=== PATIENT | male | born 1950 | race African-American/Black ===

== ENCOUNTER 2017-06-27 10:55 | Emergency (ER) | payer SELFPAY ==
[~2017-06-27] VITALS: Ht 185.4 cm; Wt 113.4 kg
[2017-06-27 11:01] VITALS: BP 143/93
[2017-06-27 11:47] LABS: Basophils # (auto) 0.1 uL; Basophils % (auto) 1.2 % (0.0-2.0); Eosinophils # (auto) 0.1 uL; Eosinophils % (auto) 1.6 % (0.0-7.0); Hematocrit 40.6 % (41.0-53.0); Hemoglobin 13.4 g/dL (13.5-17.5); Lymphocytes # (auto) 2.1 uL; Lymphocytes % (auto) 33.7 % (10.0-50.0); Mean Corpuscular Hemoglobin 33.3 pg (28.0-32.0); Mean Corpuscular Hgb Conc. 32.9 g/dL (32.0-36.0); Mean Corpuscular Volume 101.1 fL (80.0-100.0); Monocytes # (auto) 0.3 uL; Monocytes % (auto) 5.1 % (0.0-12.0); Neutrophils # (auto) 3.6 uL; Neutrophils % (auto) 58.4 % (37.0-80.0); Nucleated Red Blood Cells % 0.1 %; Platelet Count (auto) 385 10^3/uL (140-450); Red Blood Cells 4.01 10^6/uL (4.5-5.90); Red Cell Distribution Width 15.1 % (11.8-14.3); White Blood Cell 6.2 10^3/uL (4.4-10.8)
[2017-06-27 12:16] LABS: Albumin 3.8 g/dL (3.4-5.0)
[2017-06-27 12:18] LABS: BUN/Creatinine Ratio 9.6
[2017-06-27 12:19] LABS: Bilirubin, Total 0.5 mg/dL (0.2-1.0); Total Protein 8.6 g/dL (6.4-8.2)
== END 2017-06-27 12:40 | disposition home or self-care (01) ==
LOC: ER 10:55
DX: Z00.00 Encounter for general adult medical examination without abnormal findings (principal); I10 Essential (primary) hypertension
CPT/HCPCS: 36415; 80053; 85025

== ENCOUNTER 2017-07-05 12:07 | Observation (INO) | payer MEDICARE ==
[~2017-07-05] VITALS: Ht 185.4 cm; Wt 112.5 kg
[2017-07-05] MEDS ORDERED: SODIUM CHLORIDE 0.9% 1,000 ML IVB ONE (14:13)
[2017-07-05] MEDS ORDERED: ONDANSETRON HCL 4 MG/2 ML VIAL IV ONE (14:15)
[2017-07-05 14:17] LABS: Basophils # (auto) 0 uL; Basophils % (auto) 0.2 % (0.0-2.0); Eosinophils # (auto) 0.1 uL; Eosinophils % (auto) 1.4 % (0.0-7.0); Hematocrit 40.4 % (41.0-53.0); Hemoglobin 13.8 g/dL (13.5-17.5); Lymphocytes # (auto) 1.5 uL; Lymphocytes % (auto) 28.8 % (10.0-50.0); Mean Corpuscular Hemoglobin 33.4 pg (28.0-32.0); Mean Corpuscular Hgb Conc. 34.1 g/dL (32.0-36.0); Mean Corpuscular Volume 98.1 fL (80.0-100.0); Monocytes # (auto) 0.7 uL; Monocytes % (auto) 14.3 % (0.0-12.0); Neutrophils # (auto) 2.8 uL; Neutrophils % (auto) 55.3 % (37.0-80.0); Nucleated Red Blood Cells % 0.1 %; Platelet Count (auto) 315 10^3/uL (140-450); Red Blood Cells 4.12 10^6/uL (4.5-5.90); Red Cell Distribution Width 14.8 % (11.8-14.3); White Blood Cell 5.1 10^3/uL (4.4-10.8)
[2017-07-05 14:33] LABS: BUN/Creatinine Ratio 13.3
[2017-07-05 14:36] LABS: Bilirubin, Total 0.6 mg/dL (0.2-1.0); Total Protein 7.7 g/dL (6.4-8.2)
[2017-07-05 14:46] LABS: Magnesium 2.5 mg/dL (1.6-2.6)
[2017-07-05 16:02] LABS: Urine Bacteria NONE SEEN /hpf (None Seen); Urine Blood Negative /uL (Negative); Urine Mucus FEW (None Seen); Urine Specific Gravity 1.023 (1.001-1.035); Urine WBC 1 /hpf (0 - 3)
[2017-07-05 17:58] VITALS: BP 138/84
== END 2017-07-05 19:49 | disposition home or self-care (01) | DRG 392 ==
LOC: ER 12:07 → OVERFLOW 14:14 → ER 19:49
PROVIDERS: ADMIT Family Medicine; ATTEND Family Medicine
DX: K52.9 Noninfective gastroenteritis and colitis, unspecified (principal); I10 Essential (primary) hypertension; K57.90 Diverticulosis of intestine, part unspecified, without perforation or abscess without bleeding; Z86.010 Personal history of colon polyps
CPT/HCPCS: 36415; 71045; 74176; 80053; 81001; 83690; 83735; 84484; 85025; 93005; 96361; 96374; 99285; G0378; J2405; J7030

== ENCOUNTER → 2019-10-21 | Outpatient (CLI) | payer MEDICARE, BC | END | disposition home or self-care (01) | LOC: XYW 08:53 | PROVIDERS: ATTEND Internal Medicine | DX: Z01.810 Encounter for preprocedural cardiovascular examination (principal); I08.2 Rheumatic disorders of both aortic and tricuspid valves | CPT/HCPCS: 93306 ==

== ENCOUNTER → 2019-11-02 | Outpatient (CLI) | payer MEDICARE, BC ==
[~2019-11-02] VITALS: Ht 185.4 cm; Wt 117.0 kg
[~2019-11-02] MED LIST: ADENOSINE 98 MG in GIVE UN-DILUTED 0 ML IV STA
[2019-11-02 08:53] VITALS: BP 142/88
== END | disposition home or self-care (01) ==
LOC: XY 07:56
PROVIDERS: ATTEND Internal Medicine
DX: E79.0 Hyperuricemia without signs of inflammatory arthritis and tophaceous disease (principal)
CPT/HCPCS: 78452; 93017; A9500; J0153

== ENCOUNTER 2020-01-06 10:31 | Emergency (ER) | payer MEDICARE, BC ==
[~2020-01-06] VITALS: Ht 185.4 cm; Wt 115.2 kg
[2020-01-06 13:49] VITALS: BP 115/75
== END 2020-01-06 14:17 | disposition home or self-care (01) ==
LOC: ER 10:31
DX: U07.1 COVID-19 (principal); J01.00 Acute maxillary sinusitis, unspecified; I10 Essential (primary) hypertension
CPT/HCPCS: 36415; 71045; 87426

== ENCOUNTER → 2020-07-07 | Outpatient (CLI) | payer MEDICARE, BC | END | disposition home or self-care (01) | LOC: LAB 12:36 | PROVIDERS: ATTEND Internal Medicine Gastroenterology | DX: K92.2 Gastrointestinal hemorrhage, unspecified (principal); Z86.010 Personal history of colon polyps | CPT/HCPCS: 82274 ==

== ENCOUNTER → 2020-08-24 | Outpatient (CLI) | payer MEDICARE, BC | END | disposition home or self-care (01) | LOC: XYW 08:01 | PROVIDERS: ATTEND Internal Medicine | DX: Z01.810 Encounter for preprocedural cardiovascular examination (principal); I08.3 Combined rheumatic disorders of mitral, aortic and tricuspid valves | CPT/HCPCS: 93306 ==

== ENCOUNTER → 2021-03-05 | Outpatient (CLI) | payer MEDICARE, BC | END | disposition home or self-care (01) | LOC: XYW 08:01 | PROVIDERS: ATTEND Internal Medicine | DX: I11.0 Hypertensive heart disease with heart failure (principal); I50.22 Chronic systolic (congestive) heart failure; I05.0 Rheumatic mitral stenosis; I35.0 Nonrheumatic aortic (valve) stenosis | CPT/HCPCS: 93306 ==

== ENCOUNTER 2021-08-21 15:58 | Inpatient (IN) | payer MEDICARE, BC ==
[~2021-08-21] VITALS: Ht 185.4 cm; Wt 121.4 kg
[2021-08-21] MEDS ORDERED: ASPirin 81 mg TAB PO ONE (16:45)
[2021-08-21 17:33] LABS: Urine Bacteria FEW /hpf (None Seen); Urine Blood Negative /uL (Negative); Urine Mucus FEW (None Seen); Urine WBC <1 /hpf (0 - 3)
[2021-08-21 17:37] LABS: Basophils # (auto) 0 10 ^3/uL (0-0.2); Basophils % (auto) 0.6 % (0.0-2.0); Eosinophils # (auto) 0 10 ^3/uL (0-0.8); Eosinophils % (auto) 0.9 % (0.0-7.0); Hematocrit 41.1 % (41.0-53.0); Hemoglobin 13.3 g/dL (13.5-17.5); Lymphocytes # (auto) 1.8 10 ^3/uL (0.4-5.4); Lymphocytes % (auto) 36.3 % (10.0-50.0); Mean Corpuscular Hemoglobin 31.8 pg (28.0-32.0); Mean Corpuscular Hgb Conc. 32.5 g/dL (32.0-36.0); Monocytes # (auto) 0.3 10 ^3/uL (0-1.3); Monocytes % (auto) 5.9 % (0.0-12.0); Neutrophils # (auto) 2.8 10 ^3/uL (1.6-8.6); Neutrophils % (auto) 56.3 % (37.0-80.0); Nucleated Red Blood Cells % 0.1 %; Red Cell Distribution Width 16.8 % (11.8-14.3); White Blood Cell 5.1 10^3/uL (4.4-10.8)
[2021-08-21 17:45] LABS: Calcium 8.7 mg/dL (8.5-10.1); INR 0.94 (0.9-1.15); Partial Thromboplastin Time 25.9 sec (24.6-33.4); Potassium 4.5 mmol/L (3.5-5.1)
[2021-08-21 17:48] LABS: Albumin 3.6 g/dL (3.4-5.0); BUN/Creatinine Ratio 12.4; Magnesium 2.4 mg/dL (1.6-2.6)
[2021-08-21 17:51] LABS: Bilirubin, Total 0.6 mg/dL (0.2-1.0); Total Protein 7.9 g/dL (6.4-8.2)
[2021-08-22] MEDS ORDERED: ONDANSETRON HCL 4 MG/2 ML VIAL IV PRN (05:45)
[2021-08-22] MEDS ORDERED: NITROGLYCERIN 0.4 MG SL TAB SL PRN (05:45)
[2021-08-22] MEDS ORDERED: ACETAMINOPHEN 325 MG TAB PO PRN (05:45)
[2021-08-22] MEDS ORDERED: MORPHINE SULFATE INJ 2 MG/ml SYRG IV PRN (05:45)
[2021-08-22] MEDS: PANTOPRAZOLE 40 MG TAB PO SCH (09:43)
[2021-08-22] MEDS: SACUBITRIL-VALSARTAN 24mg/26mg TAB PO SCH ×2 (09:43→23:05)
[2021-08-22] MEDS: CARVEDILOL 3.125 MG TAB PO SCH ×2 (09:44→23:07)
[2021-08-22] MEDS: ENOXAPARIN SOD 40 MG/0.4 ML SYRINGE SC SCH (09:45)
[2021-08-22] MEDS ORDERED: ASPirin 81 mg TAB PO SCH (10:00)
[2021-08-22] MEDS ORDERED: CAR3125T PO (11:32)
[2021-08-22] MEDS ORDERED: ALLO100T PO (11:32)
[2021-08-22] MEDS ORDERED: SACU1TAB PO (11:32)
[2021-08-22 13:56] LABS: BUN/Creatinine Ratio 17.2; Calcium 8.4 mg/dL (8.5-10.1); Potassium 4.2 mmol/L (3.5-5.1)
[2021-08-22 22:38] VITALS: BP 130/83
[2021-08-22 23:00] VITALS: BP 130/83
[2021-08-22] MEDS: ATORVASTATIN 20 MG TAB PO SCH (23:05)
[2021-08-23 05:12] LABS: Basophils # (auto) 0 10 ^3/uL (0-0.2); Basophils % (auto) 0.4 % (0.0-2.0); Eosinophils # (auto) 0.1 10 ^3/uL (0-0.8); Eosinophils % (auto) 1.2 % (0.0-7.0); Hematocrit 37.3 % (41.0-53.0); Hemoglobin 12.4 g/dL (13.5-17.5); Lymphocytes # (auto) 1.9 10 ^3/uL (0.4-5.4); Lymphocytes % (auto) 40.1 % (10.0-50.0); Mean Corpuscular Hemoglobin 32.7 pg (28.0-32.0); Mean Corpuscular Hgb Conc. 33.4 g/dL (32.0-36.0); Mean Corpuscular Volume 98.1 fL (80.0-100.0); Monocytes # (auto) 0.3 10 ^3/uL (0-1.3); Monocytes % (auto) 6.1 % (0.0-12.0); Neutrophils # (auto) 2.5 10 ^3/uL (1.6-8.6); Neutrophils % (auto) 52.2 % (37.0-80.0); Nucleated Red Blood Cells % 0.1 %; Red Cell Distribution Width 16.3 % (11.8-14.3); White Blood Cell 4.8 10^3/uL (4.4-10.8)
[2021-08-23 05:22] VITALS: BP 126/81
[2021-08-23 05:25] LABS: Albumin 3.1 g/dL (3.4-5.0); Potassium 4.4 mmol/L (3.5-5.1)
[2021-08-23 05:35] LABS: Bilirubin, Total 0.5 mg/dL (0.2-1.0); Calcium 8.5 mg/dL (8.5-10.1); Total Protein 7.3 g/dL (6.4-8.2)
[2021-08-23] MEDS: ASPirin 81 mg TAB PO SCH (08:47)
[2021-08-23] MEDS: SACUBITRIL-VALSARTAN 24mg/26mg TAB PO SCH ×2 (08:47→21:05)
[2021-08-23] MEDS: PANTOPRAZOLE 40 MG TAB PO SCH (08:48)
[2021-08-23] MEDS: CARVEDILOL 3.125 MG TAB PO SCH ×2 (08:48→21:04)
[2021-08-23] MEDS: ENOXAPARIN SOD 40 MG/0.4 ML SYRINGE SC SCH (08:48)
[2021-08-23 08:57] VITALS: BP 120/73
[2021-08-23 12:34] VITALS: BP 126/76
[2021-08-23 16:48] VITALS: BP 157/99
[2021-08-23] MEDS ORDERED: hydrALAZINE HCL 20 MG/ML VL IV PRN (18:15)
[2021-08-23] MEDS: ATORVASTATIN 20 MG TAB PO SCH (21:05)
[2021-08-23 22:00] VITALS: BP 125/74
[2021-08-24 05:00] VITALS: BP 133/88
[2021-08-24 08:15] VITALS: BP 122/78
[2021-08-24] MEDS ORDERED: ADENOSINE 101 MG in GIVE UN-DILUTED 0 ML IV ONE (08:30)
[2021-08-24] MEDS: ENOXAPARIN SOD 40 MG/0.4 ML SYRINGE SC SCH (10:12)
[2021-08-24] MEDS: ASPirin 81 mg TAB PO SCH (10:12)
[2021-08-24] MEDS: PANTOPRAZOLE 40 MG TAB PO SCH (10:13)
[2021-08-24] MEDS: SACUBITRIL-VALSARTAN 24mg/26mg TAB PO SCH ×2 (10:13→21:23)
[2021-08-24] MEDS: CARVEDILOL 3.125 MG TAB PO SCH ×2 (10:13→22:51)
[2021-08-24 12:15] VITALS: BP 116/77
[2021-08-24 16:15] VITALS: BP 128/80
[2021-08-24] MEDS: ATORVASTATIN 20 MG TAB PO SCH (21:22)
[2021-08-24 23:11] VITALS: BP 125/88
[2021-08-25 05:29] VITALS: BP 94/53
[2021-08-25 08:15] VITALS: BP 106/74
[2021-08-25 09:06] VITALS: BP 106/74
[2021-08-25] MEDS: ASPirin 81 mg TAB PO SCH (09:36)
[2021-08-25] MEDS: SACUBITRIL-VALSARTAN 24mg/26mg TAB PO SCH ×2 (09:36→21:54)
[2021-08-25] MEDS: CARVEDILOL 3.125 MG TAB PO SCH ×2 (09:37→21:54)
[2021-08-25] MEDS: PANTOPRAZOLE 40 MG TAB PO SCH (09:37)
[2021-08-25] MEDS: ENOXAPARIN SOD 40 MG/0.4 ML SYRINGE SC SCH (09:38)
[2021-08-25 12:50] VITALS: BP 120/73
[2021-08-25 16:33] VITALS: BP 119/75
[2021-08-25] MEDS: ATORVASTATIN 20 MG TAB PO SCH (21:55)
[2021-08-25 22:00] VITALS: BP 111/71
[2021-08-26 05:00] VITALS: BP 112/69
[2021-08-26 09:00] VITALS: BP 115/76
[2021-08-26] MEDS: ASPirin 81 mg TAB PO SCH (10:11)
[2021-08-26] MEDS: SACUBITRIL-VALSARTAN 24mg/26mg TAB PO SCH (10:12)
[2021-08-26] MEDS: CARVEDILOL 3.125 MG TAB PO SCH (10:12)
[2021-08-26] MEDS: PANTOPRAZOLE 40 MG TAB PO SCH (10:12)
[2021-08-26] MEDS: ENOXAPARIN SOD 40 MG/0.4 ML SYRINGE SC SCH (10:12)
[2021-08-26 13:00] VITALS: BP 122/77
[2021-08-26 14:30] VITALS: BP 122/77
== END 2021-08-26 17:00 | disposition home or self-care (01) | DRG 313 ==
LOC: ER 15:58 → TELE 08-22 05:41 → TELE-WESTW 08-22 22:30
PROVIDERS: ADMIT Nurse Practitioner; ATTEND Internal Medicine Nephrology
DX: R07.89 Other chest pain (principal); N17.9 Acute kidney failure, unspecified; I13.0 Hypertensive heart and chronic kidney disease with heart failure and stage 1 through stage 4 chronic kidney disease, or unspecified chronic kidney disease; I50.22 Chronic systolic (congestive) heart failure; I20.0 Unstable angina; K21.9 Gastro-esophageal reflux disease without esophagitis; E66.9 Obesity, unspecified; Z20.822 Contact with and (suspected) exposure to COVID-19; M10.9 Gout, unspecified; E78.5 Hyperlipidemia, unspecified; Z68.35 Body mass index [BMI] 35.0-35.9, adult; N18.2 Chronic kidney disease, stage 2 (mild)
CPT/HCPCS: 36415; 71045; 78452; 80048; 80053; 80061; 81001; 83735; 83880; 84443; 84484; 85025; 85379; 85610; 85730; 93005; 93017; 93970; 96372; G0378; J0153

== ENCOUNTER → 2022-06-11 | Outpatient (CLI) | payer MEDICARE, BC ==
[~2022-06-11] MED LIST changes: -ADENOSINE 98 MG in GIVE UN-DILUTED 0 ML IV STA; +ALLO100T PO; +CAR3125T PO; +SACU1TAB PO
== END | disposition home or self-care (01) ==
LOC: XYW 10:40
PROVIDERS: ATTEND Internal Medicine
DX: I07.1 Rheumatic tricuspid insufficiency (principal); I50.22 Chronic systolic (congestive) heart failure
CPT/HCPCS: 93306

== ENCOUNTER → 2023-02-27 | Outpatient (CLI) | payer MEDICARE, BC, OTHER ==
[~2023-02-27] VITALS: Ht 185.4 cm; Wt 113.4 kg
[~2023-02-27] MED LIST changes: +ADENOSINE 95 MG in GIVE UN-DILUTED 0 ML IV ONE
== END | disposition home or self-care (01) ==
LOC: XYW 07:00
PROVIDERS: ATTEND Internal Medicine
DX: I20.9 Angina pectoris, unspecified (principal); R07.89 Other chest pain; I42.0 Dilated cardiomyopathy; I10 Essential (primary) hypertension; E78.5 Hyperlipidemia, unspecified; E66.9 Obesity, unspecified
CPT/HCPCS: 78452; 93017; A9500; J0153